=== PATIENT | male | born 1940 | race Caucasian/White ===

== ENCOUNTER 2017-03-11 11:42 | Emergency (ER) | payer MEDICARE ==
--- NOTE | 2017-03-11 13:18 | ED ---
Back Pain - HPI Summary HPI Summary: Patient presents to the ED with chief complaint of left rib pain status post fall this AM. He states he had pain discretely located over which is rated a 9 out of 10. Worse with cough, better with rest and ice. Denies any other symptoms including abdominal he has been otherwise healthy and lives with his . Denies hitting head or loss of consciousness. He is ambulating well and denies any back pain. - History of Current Complaint Chief Complaint: EDChestWallPain Stated Complaint: POSSIBLE LT RIB Time Seen by Provider: 03/11/17 12:46 Hx Obtained From: Patient Onset/Duration: Sudden Onset Onset/Duration: Started Hours Ago Back Pain Location: Is Discrete @ - left sided ribs Pain Intensity: 3 Pain Scale Used: 0-10 Numeric Character: Aching Aggravating Symptom(s): Movement, Lifting, Walking, Cough Alleviating Symptom(s): Rest, Position, Heat Associated Signs And Symptoms: Negative: Swelling, Redness, Bruising, Numbness, Tingling, Abdominal Pain, Bladder Incontinence, Bowel Incontinence, Weight Loss , Pain with Weight Bearing - Risk Factors AAA Risk Factors: Negative TAD Risk Factors: Negative Cauda Equina Risk Factors: Negative Epidural Abscess Risk Factors: Negative - Allergies/Home Medications Allergies/Adverse Reactions: Allergies Allergy/AdvReac Type Severity Reaction Status Date / Time Tetanus Antitoxin Allergy Severe Anaphylatic Verified 03/11/17 12:05 Shock PMH/Surg Hx/FS Hx/Imm Hx Previously Healthy: Yes Endocrine/Hematology History: Denies: Hx Diabetes, Hx Thyroid Disease Cardiovascular History: Reports: Hx Angina Denies: Hx Congestive Heart Failure, Hx Coronary Artery Disease, Hx Hypercholesterolemia, Hx Hypertension, Hx Myocardial Infarction, Hx Pacemaker/ ICD, Hx Peripheral Vascular Disease, Hx Valvular Heart Disease Respiratory History: Denies: Hx Asthma, Hx Chronic Obstructive Pulmonary Disease (COPD) GI History: Reports: Hx Gastroesophageal Reflux Disease - CONTROLLED WITH MEDS History: Denies: Hx Renal Disease Musculoskeletal History: Denies: Hx Arthritis, Hx Osteoporosis Sensory History: Denies: Hx Cataracts, Hx Contacts or Glasses, Hx Glaucoma, Hx Hearing Aid Opthamlomology History: Denies: Hx Cataracts, Hx Contacts or Glasses, Hx Glaucoma Neurological History: Denies: Hx Dementia, Hx Headaches, Hx Seizures, Hx Transient Ischemic Attacks (TIA) Psychiatric History: Denies: Hx Anxiety, Hx Depression, Hx Panic Disorder, Hx Substance Abuse - Surgical History Surgery Procedure, Year, and Place: knee replacement 2009. bilateral rotator cuff surgery Hx Anesthesia Reactions: Yes - VERY SENSITIVE TO NORMAL AMOUNTS OF ANESTHESIA - Immunization History Date of Tetanus Vaccine: allergy to tetanua Date of Influenza Vaccine: UTD Hx Pertussis Vaccination: No Immunizations Up to Date: Unable to Obtain/Confirm Infectious Disease History: No Infectious Disease History: Denies: Hx Hepatitis, Hx Human Immunodeficiency Virus (HIV), Traveled Outside the [place] in Last 30 Days - Social History Occupation: Unemployed Lives: With Family Alcohol Use: None Hx Substance Use: No Substance Use Type: Reports: None Hx Tobacco Use: No Smoking Status (MU): Never Smoked Tobacco Review of Systems Constitutional: Negative Negative: Fever, Chills, Fatigue, Skin Diaphoresis Eyes: Negative Cardiovascular: Negative Genitourinary: Negative Positive: no symptoms reported, see HPI Positive: Arthralgia Neurological: Negative Psychological: Normal All Other Systems Reviewed And Are Negative: Yes Physical Exam Triage Information Reviewed: Yes Vital Signs On Initial Exam: Initial Vitals Temp Pulse Resp BP Pulse Ox 98.1 F 79 18 124/82 97 03/11/17 12:00 03/11/17 12:00 03/11/17 12:00 03/11/17 12:00 03/11/17 12:00 Vital Signs Reviewed: Yes Appearance: Positive: Well-Appearing, Well-Nourished Skin: Positive: Warm, Skin Color Reflects Adequate Perfusion Head/Face: Positive: Normal Head/Face Inspection Eyes: Positive: EOMI, SHONDA, Conjunctiva Clear Neck: Positive: Supple, No Lymphadenopathy Respiratory/Lung Sounds: Positive: Clear to Auscultation, Breath Sounds Present Cardiovascular: Positive: RRR, Pulses are Symmetrical in both Upper and Lower Extremities Musculoskeletal: Positive: Pain @ - left ribs Neurological: Positive: Sensory/Motor Intact, Alert, Oriented to Person Place, Time, Speech Normal Psychiatric: Positive: Normal, Affect/Mood Appropriate Diagnostics - Vital Signs Vital Signs Temp Pulse Resp BP Pulse Ox 03/11/17 12:00 98.1 F 79 18 124/82 97 - Laboratory Lab Statement: Any lab studies that have been ordered have been reviewed, and results considered in the medical decision making process. Back Pain Course/Dx - Course Course Of Treatment: On arrival to the ED, patient notes a 10/10 pain to the left ribs. He declines any pain medication or ibuprofen at this time. He denies hitting his head or any other symptoms. There is no ecchymosis or other signs of trauma on physical exam. IMPRESSION: 1. Grossly nondisplaced LEFT fourth, fifth, and sixth rib fractures with associated soft. tissue swelling. 2. Negative for pneumothorax or pleural effusion. 3. Mild LEFT lower lung zone subsegmental atelectasis. Discussed treatment options patient. Discussed case with Dr. Avendaño who recommends a CT of the chest to assess for pulmonary contusions, emphysema, or other structural damage. CT obtained. ABDOMEN IMPRESSION: 1. No evidence for traumatic splenic injury within limits of noncontrast CT. 2. Cholelithiasis. Discussed options of going to a trauma center versus going home for care. Patient is stable, lungs are clear to auscultation bilaterally and patient's pain is well controlled with 10 mg hydrocodone while in the ED. at bedside who agrees to take him home and care for him. He will follow-up with his PCP in 3-5 days. He is given strict return precautions including shortness of breath, worsening chest pain despite pain medicine and any fevers, sweats, chills. He is given an incentive spirometer and taught its use. - Diagnoses Provider Diagnoses: Rib fracture Discharge - Discharge Plan Condition: Stable Disposition: HOME Prescriptions: oxyCODONE/Acetamin 10/325(NF) [Percocet 10/325 (NF)] 1 tab PO Q6H #24 tab MDD 4 Patient Education Materials: Rib Fracture (ED) Referrals: Ronel Hagan MD [Primary Care Provider] - Additional Instructions: If you develop any worsening or differing symptoms you need to come back to the ED immediately. This includes shortness of breath pain not well controlled with ibuprofen or the oxycodone prescribed to you. Do not drive or operate machinery while taking the oxycodone. Up to only 4 times per day. You may develop constipation with this medication. I recommend taking a stool softener and he started to develop any constipation symptoms. Use the spirometer to 10 times per hour to prevent pneumonia. Rib fractures take time to heal and you should be feeling better by next week.
--- NOTE | 2017-03-11 14:35 | RAD ---
Indication: LEFT rib pain post fall. Comparison: February 14, 2013 CT chest. Technique: Dual energy PA chest and 4 view LEFT unilateral rib series. Report: Grossly nondisplaced LEFT fourth, fifth, and sixth rib fractures laterally. Associated superficial and pleural soft tissue swelling. Negative for pneumothorax. Mild LEFT lower lung zone subsegmental atelectasis. Cardiomegaly. Unremarkable central pulmonary vasculature. Suggestion of surgical clips at the LEFT supraclavicular region. Advanced degenerative arthropathy of the shoulders. IMPRESSION: 1. Grossly nondisplaced LEFT fourth, fifth, and sixth rib fractures with associated soft tissue swelling. 2. Negative for pneumothorax or pleural effusion. 3. Mild LEFT lower lung zone subsegmental atelectasis.
--- NOTE | 2017-03-11 16:04 | RAD ---
INDICATION: LEFT rib fractures. Pain with coughing. Clinical concern for potential splenic injury. COMPARISON: March 11, 2017 chest radiograph. TECHNIQUE: Multidetector CT images were obtained from the lung apices to the iliac crests without contrast. Assessment of the viscera limited without contrast. CHEST REPORT: Tiny calcified granulomas at the lung bases. No suspicious focal pulmonary lesions. Negative for pleural effusion or pneumothorax. 4.5 x 3.6 cm nodule at the RIGHT thyroid lobe. Negative for conspicuous mediastinal hematoma. Mild cardiomegaly. Negative for pericardial effusion. Normal diameter thoracic aorta. Coronary artery calcifications. LEFT fourth, fifth, and sixth grossly nondisplaced rib fractures with associated mild infiltrative edema and subcutaneous emphysema along the course of the fractures. No significant loculated hematoma evident. Negative for additional acute thoracic fractures. Polyarticular degenerative arthropathy including diffuse degenerative spondylosis and facet joint osteoarthritis as well as marked arthropathy at the glenohumeral joints with glenohumeral abutment consistent with full-thickness rotator cuff tears. CHEST IMPRESSION: 1. Acute LEFT fourth, fifth, and C6 grossly nondisplaced rib fractures. 2. Negative for pleural effusion or pneumothorax. 3. Large RIGHT thyroid lobe nodule corresponding with finding on January 17, 2016 thyroid ultrasound. ABDOMEN REPORT: Assessment of the abdominal viscera is limited without IV or oral contrast. No conspicuous splenic laceration or perisplenic hematoma. Unremarkable liver. Dependent stones at the gallbladder. Unremarkable pancreas. No pathologic finding of the visualized alimentary tract. Negative for ascites or free air within the [id number]. Normal adrenal glands. No CT abnormality of the unenhanced kidneys. Negative for lymphadenopathy. Normal diameter abdominal aorta visualized through the bifurcation. Physiologic distention of the IVC. No acute fracture evident within the [id number]. Diffuse degenerative spondylosis and facet joint osteoarthritis. Negative for retroperitoneal or superficial soft tissue hematoma within the [id number]. ABDOMEN IMPRESSION: 1. No evidence for traumatic splenic injury within limits of noncontrast CT. 2. Cholelithiasis.
[2017-03-11] MEDS ORDERED: HYDROcodone/ACETAMIN 5-325 MG* 1 TAB PO ONE (16:33)
[2017-03-11 16:45] VITALS: BP 126/75
== END 2017-03-11 16:50 | disposition home or self-care (01) ==
LOC: ED 11:42
DX: S22.42XA Multiple fractures of ribs, left side, initial encounter for closed fracture (principal); K80.20 Calculus of gallbladder without cholecystitis without obstruction; K21.9 Gastro-esophageal reflux disease without esophagitis; W19.XXXA Unspecified fall, initial encounter; Y92.9 Unspecified place or not applicable
CPT/HCPCS: 71250; 74150; 99282

== ENCOUNTER 2017-04-10 17:25 | Emergency (ER) | payer MEDICARE ==
[2017-04-10 17:56] VITALS: BP 100/63
[2017-04-10] MEDS ORDERED: Oseltamivir CAP* 75 MG CAP PO ONE ×2 (18:33→18:34)
--- NOTE | 2017-04-10 19:16 | UC ---
Justa Lazaro Emily, scribed for Papito Lopez MD on 04/10/17 at 1832 . Respiratory Complaint HPI - HPI Summary HPI Summary: This patient is a 76 year old M presenting to urgent care accompanied by with a chief complaint of cough that began 2 days ago. The patient rates the pain 0/10 in severity. Symptoms aggravated by nothing. Symptoms alleviated by nothing. Patient reports myalgia, chills, nasal discharge, burning eyes, and wheezing. Patient denies SOB. - History of Current Complaint Chief Complaint: UCRespiratory Stated Complaint: FLU-LIKE Time Seen by Provider: 04/10/17 18:23 Onset/Duration: Sudden Onset, Lasting Days, Still Present Timing: Constant Severity Initially: Mild Severity Currently: Mild Pain Intensity: 0 Pain Scale Used: 0-10 Numeric Aggravating Factors: Nothing Alleviating Factors: Nothing Associated Signs And Symptoms: Positive: Chills, Wheezing - Allergies/Home Medications Allergies/Adverse Reactions: Allergies Allergy/AdvReac Type Severity Reaction Status Date / Time Tetanus Vaccines and Toxoid Allergy Anaphylatic Verified 04/10/17 17:57 Shock Home Medications: Home Medications Diflunisal TAB* [Dolobid TAB*] 250 mg PO BID 04/10/17 [History Confirmed ] PMH/Surg Hx/FS Hx/Imm Hx Previously Healthy: No Cardiovascular History: Cardiac Disease GI/ History: Gastroesophageal Reflux - Surgical History Surgical History: Yes Surgery Procedure, Year, and Place: knee replacement 2009 - Family History Known Family History: Positive: Diabetes, Other - [place] - Social History Occupation: Retired Lives: With Family Alcohol Use: None Substance Use Type: None Smoking Status (MU): Never Smoked Tobacco Review of Systems Constitutional: Chills Eyes: Other - Positive burning eyes ENT: Nasal Discharge Respiratory: Cough, Other - Positive wheezing. Negative SOB Musculoskeletal: Myalgia All Other Systems Reviewed And Are Negative: Yes Physical Exam - Summary Physical Exam Summary: General: mildly ill-appearing, no pain distress Skin: warm, color reflects adequate perfusion, dry Head: normal Eyes: EOMI, SHONDA ENT: Rhinorrhea, posterior pharynx mild erythema, positive cervical anterior lymphadenopathy. Neck: supple, nontender Respiratory: CTA, breath sounds present Cardiovascular: RRR Abdomen: soft, nontender Bowel: present Musculoskeletal: normal, strength/ROM intact Neurological: normal, sensory/motor intact, A&O x3 Psychological: affect/mood appropriate Triage Information Reviewed: Yes Vital Signs: Initial Vital Signs Temp 99.6 F 04/10/17 17:49 Pulse 96 04/10/17 17:49 Resp 16 04/10/17 17:49 BP 100/63 04/10/17 17:49 Pulse Ox 98 04/10/17 17:49 Vital Signs Reviewed: Yes UC Diagnostic Evaluation - Laboratory O2 Sat by Pulse Oximetry: 98 Respiratory Course/Dx - Course Course Of Treatment: Medications reviewed. Allergies reviewed. - Differential Dx/Diagnosis Provider Diagnoses: INFLUENZA Discharge - Discharge Plan Condition: Stable Disposition: HOME Prescriptions: Oseltamivir CAP* [Tamiflu CAP*] 75 mg PO BID #8 cap Patient Education Materials: Influenza (ED) Referrals: Ronel Hagan MD [Primary Care Provider] - Additional Instructions: FOLLOW UP WITH YOUR DOCTOR. GET RECHECKED FOR ANY WORSENING OF YOUR CONDITION OR QUESTIONS OR CONCERNS. The documentation as recorded by the Justa gr Emily accurately reflects the service I personally performed and the decisions made by me, Papito Lopez MD.
== END 2017-04-10 18:49 | disposition home or self-care (01) ==
LOC: UCEAST 17:25
DX: J11.1 Influenza due to unidentified influenza virus with other respiratory manifestations (principal); I51.9 Heart disease, unspecified; K21.9 Gastro-esophageal reflux disease without esophagitis; Z96.659 Presence of unspecified artificial knee joint; Z88.7 Allergy status to serum and vaccine
CPT/HCPCS: 87502; 99212; A9270-GY; G0463

== ENCOUNTER 2017-09-21 12:50 | Day surgery (SDC) | payer MEDICARE ==
[~2017-09-21 12:50] MED LIST: Buffered Lidocaine 0.9% SYRIN* 5 ML/SYR SYRINGE INTRADERM ONE
[2017-09-21] MEDS ORDERED: ceFAZolin 2 GM PREMIX (*) 2 GM/50 ML BAG IVPB ONE (13:04)
[2017-09-21] MEDS ORDERED: Lidocain 1% EPI 1:100,000 * 30 ML MDV ONE (15:42)
[2017-09-21] MEDS ORDERED: Midazolam* 1 MG/ML 5 ML VIAL (5 MG) ONE (15:50)
[2017-09-21] MEDS ORDERED: fentaNYL* 50 MCG/ML 2 ML VIAL (100 MCG VIAL) ONE (16:16)
[2017-09-21] MEDS ORDERED: Bupivacaine 0.25% SDV PF* 10 ML VIAL INJ ONE (16:18)
[2017-09-21] MEDS ORDERED: Ondansetron INJ* 2 MG/ML VIAL IV PRN (16:44)
[2017-09-21] MEDS ORDERED: fentaNYL* 50 MCG/ML 2 ML VIAL (100 MCG VIAL) IV PRN (16:44)
[2017-09-21] MEDS ORDERED: oxyCODONE/Acetamin 5/325 MG* TAB PO PRN (16:44)
[2017-09-21] MEDS ORDERED: HYDROcodone/ACETAMIN 5-325 MG* 1 TAB PO PRN (16:44)
[2017-09-21] MEDS ORDERED: Naloxone* 0.4 MG/ML 1 ML VIAL IV PRN (16:44)
[2017-09-21 18:23] VITALS: BP 98/59
== END 2017-09-21 18:36 | disposition home or self-care (01) ==
LOC: OR 12:50
PROVIDERS: ATTEND Plastic Surgery
DX: D03.59 Melanoma in situ of other part of trunk (principal); I42.2 Other hypertrophic cardiomyopathy; Z85.828 Personal history of other malignant neoplasm of skin; Z79.01 Long term (current) use of anticoagulants; I48.91 Unspecified atrial fibrillation; K21.9 Gastro-esophageal reflux disease without esophagitis; I50.9 Heart failure, unspecified
CPT/HCPCS: 88305; J0690; J2250; J3010; J3490

== ENCOUNTER → 2017-12-23 14:23 | Day surgery (SDC) | payer MEDICARE ==
[~2017-12-23 14:23] MED LIST changes: +Artificial Tear OPHTH.OINT* 3.5 GM ONE; +Bupivacaine 0.25% W/EPI* 10 ML SDV ONE; +HYDROmorphone INJ* 0.5 MG/0.5 ML SYRINGE ONE; +Lidocain 1% EPI 1:100,000 * 30 ML MDV ONE; +Lidocaine 2% PF * 5 ML VIAL ONE; +Methylene Blue 0.5 %* 50 MG/10 ML AMP IV ONE; +Midazolam* 1 MG/ML 2 ML VIAL (2 MG) ONE; +Mineral Oil Sterile, TOPICAL* 25 ML BTL ONE; +Naloxone* 0.4 MG/ML 1 ML VIAL IV PRN; +Propofol* 10 MG/ML 20 ML BTL IV PUSH ONE; +ceFAZolin 2 GM PREMIX in ORs 2 GM/50 ML BAG IVPB ONE; +fentaNYL* 50 MCG/ML 2 ML VIAL (100 MCG VIAL) ONE
[2017-12-23 18:18] VITALS: BP 87/65
== END | disposition home or self-care (01) ==
LOC: OR 14:23
PROVIDERS: ATTEND Plastic Surgery
DX: D03.59 Melanoma in situ of other part of trunk (principal); I42.2 Other hypertrophic cardiomyopathy; I48.91 Unspecified atrial fibrillation; K21.9 Gastro-esophageal reflux disease without esophagitis; M19.90 Unspecified osteoarthritis, unspecified site; Z79.01 Long term (current) use of anticoagulants
CPT/HCPCS: 88305; A9270-GY; J0690; J1170; J2250; J2704; J3010